=== PATIENT | male | born 1940 | race Caucasian/White ===

== ENCOUNTER 2018-05-21 13:55 | Day surgery (SDC) | payer MEDICARE, BC ==
[2018-05-21] VITALS (8 sets, daily range): BP systolic 111–132; BP diastolic 70–79
[~2018-05-21] VITALS: Ht 172.7 cm; Wt 89.5 kg
[2018-05-21] MEDS ORDERED: FLO0.4C PO (15:12)
[2018-05-21] MEDS ORDERED: LISI-600 PO (15:12)
[2018-05-21] MEDS ORDERED: OMEP40CA37 PO (15:12)
[2018-05-21] MEDS ORDERED: GABA-532 PO (15:12)
[2018-05-21] MEDS ORDERED: ATOR40TA PO (15:12)
[2018-05-21] MEDS ORDERED: TERA5CAP4 PO (15:12)
[2018-05-21] MEDS ORDERED: LORazepam 0.5 MG tablet PO PRN (15:55)
[2018-05-21] MEDS ORDERED: diphenhydrAMINE 25mg capsule PO PRN (15:55)
[2018-05-21] MEDS ORDERED: normal saline 1000ml 1,000 ML IV SCH (15:55)
[2018-05-21] MEDS ORDERED: LIDOcaine 1% (10mg/ml)w/preservative injection 20ml MDV ONE (16:44)
[2018-05-21] MEDS ORDERED: iohexol 350MG/ML 100ml bottle IV ONE (16:44)
[2018-05-21] MEDS ORDERED: fentaNYL/PF 50MCG/1 ML 2ML syringe ONE (16:57)
[2018-05-21] MEDS ORDERED: midazolam 2 mg/2 ml injection ONE (16:58)
[2018-05-21] MEDS ORDERED: HYDROcodone/acetaminophen 10/325mg tab PO PRN (17:50)
[2018-05-21] MEDS ORDERED: ondansetron/PF 4mg/2ml inj IV PRN (17:50)
[2018-05-21] MEDS ORDERED: OXAZEpam 15mg capsule PO PRN (17:50)
[2018-05-21] MEDS ORDERED: HYDROcodone/acetaminophen 5mg/325mg tablet PO PRN (17:50)
[2018-05-21] MEDS ORDERED: proCHLORperazine 10 MG/2 ml inj IV PRN (17:50)
== END 2018-05-21 20:00 | disposition home or self-care (01) ==
LOC: SSTAY O 13:55
PROVIDERS: ATTEND Internal Medicine Interventional Cardiology
DX: I25.10 Atherosclerotic heart disease of native coronary artery without angina pectoris (principal); I10 Essential (primary) hypertension; E78.5 Hyperlipidemia, unspecified; Z87.891 Personal history of nicotine dependence
CPT/HCPCS: 93005; 93458; 99152; A6257; J1644; J2001; J2250; J3010; J7030; Q0163; Q9967; A4620; C1769